=== PATIENT | male | born 1990 | race Two or more races ===

== ENCOUNTER 2025-01-08 21:24 | Emergency (ER) | payer OTHER ==
[~2025-01-08] VITALS: Ht 167.6 cm; Wt 136.4 kg
--- NOTE | 2025-01-08 21:49 | ED.PDOC ---
Back pain HPI HPI Comments PT PRESENTED TO ED FOR LEFT ANKLE PAIN AFTER FALL INJURY AT WORK. PT WAS SEEN AT [facility]RGENT [facility] TODAY AND REFERRED TO ED FOR CRUTCHES AND SPLINT D/T POSSIBLE LEFT ANKLE FRACTURE. PT AMBULATED INTO TRIAGE. (+) NUMBNESS/TINGLING TO LLE. GCS-15, ALL VSS. Chief Complaint: Lower Extremity Time Seen by MD: 21:27 Reviewed Notes: Nurses Notes, Medications, Allergies Allergies: Coded Allergies: No Known Drug Allergy (Verified Allergy, Unknown, 01/08/25) Information Source: Patient Past Medical History PAST MEDICAL HISTORY: Denies Surgical History: Denies all surgeries Family History Family History: Reviewed,noncontributory to illness Social History Smoker: Non-Smoker Alcohol: Denies ETOH Use Drugs: Denies Drug Use Constitutional: denies: chills, diaphoresis, fatigue, fever, malaise, sweats, weakness, others EENTM: denies: blurred vision, double vision, ear bleeding, ear discharge, ear drainage, ear pain, ear ringing, eye pain, eye redness, hearing loss, mouth pain, mouth swelling, nasal discharge, nose bleeding, nose congestion, nose pain, photophobia, tearing, throat pain, throat swelling, voice changes, others Respiratory: denies: cough, hemoptysis, orthopnea, SOB at rest, shortness of breath, SOB with excertion, stridor, wheezing, others Cardiovascular: denies: chest pain, dizzy spells, diaphoresis, Dyspnea on exertion, edema, irregular heart beat, left arm pain, lightheadedness, palpitations, PND, syncope, others Gastrointestinal: denies: abdomen distended, abdominal pain, blood streaked bowels, constipated, diarrhea, dysphagia, difficulty swallowing, hematemesis, melena, nausea, poor appetite, poor fluid intake, rectal bleeding, rectal pain, vomiting, others Genitourinary: denies: burning, dysuria, flank pain, frequency, hematuria, incontinence, penile discharge, penile sore, pain, testicle pain, testicle swelling, urgency, others Neurological: denies: dizziness, fainting, headache, left sided numbness, left sided weakness, numbness, paresthesia, pre-existing deficit, right sided numbness, right sided weakness, seizure, speech problems, tingling, tremors, weakness, others Musculoskeletal: reports: joint pain, joint swelling; denies: back pain, gout, muscle pain, muscle stiffness, neck pain, others Integumetry: reports: bruises; denies: change in color, change in hair/nails, dryness, laceration, lesions, lumps, rash, wounds, others Allergic/Immunocompromised: denies: Difficulty Healing, Frequent Infections, Hives, Itching, others Hematologic/Lymphatic: denies: anemia, blood clots, easy bleeding, easy bruising, swollen glands, others Endocrine: denies: excessive hunger, excessive sweating, excessive thirst, excessive urination, flushing, intolerance to cold, intolerance to heat, unexplained weight gain, unexplained weight loss, others Psychiatric: denies: anxiety, bipolar disorder, depression, hopeless, panic disorder, schizophrenia, sleepless, suicidal, others Physical Exam General Appearance: No Apparent Distress, Normal HEENT: Normal ENT Inspection, Pharynx Normal, TMs Normal Neck: Full Range of Motion, Non-Tender, Normal, Normal Inspection Respiratory: Chest Non-Tender, Lungs Clear, No Accessory Muscle Use, No Respiratory Distress, Normal Breath Sounds Cardiovascular: No Edema, No JVD, No Murmur, No Gallop, Normal Peripheral Pulses, Regular Rate/Rhythm Breast Exam: Deferred Gastrointestinal: No Organomegaly, Non Tender, No Pulsatile Mass, Normal Bowel Sounds, Soft Genitalia: Deferred Pelvic: Deferred Rectal: Deferred Extremities: No calf tenderness, Normal capillary refill, Normal inspection, Normal range of motion, Non-tender, No pedal edema Musculoskeletal : Location: Left Extremity Location: Ankle (Pinpoint tenderness posterior malleolus trace edema no noted abrasions lacerations or lesions) Apperance: Normal Neurologic: Alert, court deputy II-XII nml as Tested, No Motor Deficits, Normal Affect, Normal Mood, No Sensory Deficits Cerebellar Function: Normal Reflexes: Normal Skin: Dry, Normal Color, Warm Lymphatic: No Adenopathy Was a procedure done? Was a procedure done?: No Back Pain Differential Dx Differential Diagnosis: Fracture, Musculoskeletal Pain X-Ray, Labs, Meds, VS Vital Signs Date Time Temp Pulse Resp B/P (MAP) Pulse Ox O2 Delivery O2 Flow Rate FiO2 01/09/25 01:14 97.8 82 16 156/78 (104) 97 97.8 01/08/25 23:14 98.1 85 16 160/82 (108) 97 98.1 01/08/25 23:14 85 17 98 Room Air 01/08/25 21:42 98.7 99 16 120/53 (75) 97 98.7 Current Medications Medications (Trade) Dose Ordered Sig/Kristen Route Start Time Stop Time Status Last Admin Ibuprofen (Motrin Tablet) 800 mg ONCE ONCE PO 01/09/25 00:45 01/09/25 00:46 DC 01/09/25 00:58 X-Ray, Labs, Meds, VS Comment Repeat x-ray pending read does show possible acute posterior malleolus fracture. Placed patient in splint and crutches script Medrol Dosepak and muscle relaxer advised take medications as prescribed side effects discussed. Advised to follow up with his PCP for ortho referral if needed. ER return precautions given patient indicates understanding and agrees with discharge plan of care. Time of 1ST Reevaluation: 21:47 Reevaluation 1ST: Unchanged Time of 2ND Reevaluation: 01:49 Reevaluation 2ND: Improved Patient Education/Counseling: Diagnosis, Treatment, Prognosis, Need For Follow Up Family Education/Counseling: No Family Present SEPSIS Sepsis Screen Physician Orders L Ankle 3 View (01/08/25 21:44) Splints (01/09/25 ) Vital Signs Date Time Temp Pulse Resp B/P (MAP) Pulse Ox O2 Delivery O2 Flow Rate FiO2 01/09/25 01:14 97.8 82 16 156/78 (104) 97 97.8 01/08/25 23:14 98.1 85 16 160/82 (108) 97 98.1 01/08/25 23:14 85 17 98 Room Air 01/08/25 21:42 98.7 99 16 120/53 (75) 97 98.7 Medications Medications Dose Ordered Sig/Kristen Route Start Time Stop Time Status Last Admin Dose Admin Ibuprofen 800 mg ONCE ONCE PO 01/09/25 00:45 01/09/25 00:46 DC 01/09/25 00:58 Departure 1 Departure Time of Disposition: 01:49 Impression: Primary Impression: Fracture of malleolus of left ankle Qualified Codes: S82.892A - Other fracture of left lower leg, initial encounter for closed fracture Disposition: 01 HOME / SELF CARE / HOMELESS Condition: Stable e-Prescriptions Tizanidine Hydrochloride (Tizanidine Hcl) 4 Mg Tab 4 MG PO BID PRN for 5 Days, #10 TAB Prov: TRISTAN CLAYTON 01/09/25 Methylprednisolone (Medrol Dosepak) 4 Mg Sarmad 4 MG PO UD for 6 Days, #21 TAB UAD Prov: TRISTAN CLAYTON 01/09/25 Discharged With: Self Critical Care Note Critical Care Time?: No Stability Stability form required: No TRISTAN CLAYTON Jan 08, 2025 21:49
[2025-01-09] MEDS: IBUPROFEN 800 MG TAB PO ONE (00:58)
[2025-01-09 01:14] VITALS: BP 156/78; PULSE 82; RESP 16; TEMP 97.8; O2SAT 97
[2025-01-09] MEDS ORDERED: METH4PAK PO (02:06)
[2025-01-09] MEDS ORDERED: TIZA-142 PO (02:06)
--- NOTE | 2025-01-11 07:35 | DVH ---
Examination: LANK Clinical Indication: Injury/pain. Comparison: None Technique: X-ray ankle Three views Findings: There is no evidence of acute fracture, dislocation or osseous destructive lesion. Plantar calcaneal spur is seen. The talar dome is unremarkable. The ankle mortise is intact. The soft tissues appear unremarkable. Impression: 1. No acute osseous or soft tissue abnormality. 2. Plantar calcaneal spur. Electronically Signed 01/09/2025 00:47 Alexandra DODGE
== END 2025-01-09 02:11 | disposition home or self-care (01) ==
LOC: ER 21:24
DX: S82.52XA Displaced fracture of medial malleolus of left tibia, initial encounter for closed fracture (principal); W18.39XA Other fall on same level, initial encounter; Y93.89 Activity, other specified; Y92.89 Other specified places as the place of occurrence of the external cause; Y99.8 Other external cause status
CPT/HCPCS: 29515; 73610